=== PATIENT | female | born 1980 | race African-American/Black ===

== ENCOUNTER 2023-05-24 18:36 | Emergency (ER) | payer MEDICAID ==
[~2023-05-24] VITALS: Ht 167.6 cm; Wt 82.0 kg
[2023-05-24 18:46] VITALS: PULSE 105
[2023-05-24 18:54] VITALS: BP 125/76; RESP 18; TEMP 98; O2SAT 99
[2023-05-24] MEDS ORDERED: TRAM50TA3 MT (20:18)
[2023-05-24] MEDS ORDERED: NAPR-681 MT (20:18)
== END 2023-05-24 20:33 | disposition home or self-care (01) ==
LOC: ER 18:58
DX: S70.11XA Contusion of right thigh, initial encounter (principal); W06.XXXA Fall from bed, initial encounter; Y93.89 Activity, other specified; Y92.89 Other specified places as the place of occurrence of the external cause; Y99.8 Other external cause status
CPT/HCPCS: 99283

== ENCOUNTER 2023-08-06 12:58 | Emergency (ER) | payer MEDICARE, MEDICAID ==
[~2023-08-06] VITALS: Ht 170.2 cm; Wt 89.0 kg
[~2023-08-06 12:58] MED LIST: NAPR-681 MT; TRAM50TA3 MT
[2023-08-06 13:15] VITALS: O2SAT 99
[2023-08-06 14:01] LABS: CLARITY URINE CLEAR (CLEAR); COLOR URINE YELLOW (YELLOW); GLUCOSE URINE NEGATIVE (NEGATIVE); KETONES URINE TRACE (NEGATIVE); LEUKOCYTE ESTERASE URINE TRACE (NEGATIVE); NITRITE URINE NEGATIVE (NEGATIVE); OCCULT BLOOD URINE 3+ (NEGATIVE); PROTEIN URINE 1+ (NEGATIVE); SPECIFIC GRAVITY URINE 1.034 (1.005-1.030); UROBILINOGEN URINE 0.2 E.U./dL (0.2-1.0)
[2023-08-06 14:36] LABS: BACTERIA URINE 1+; MUCUS URINE TRACE /lpf (< = 2+); SQUAMOUS EPITHELIAL CELL URINE 3+ /lpf (RARE/1+)
[2023-08-06] MEDS ORDERED: CLAR10 MT (15:25)
[2023-08-06] MEDS ORDERED: FLUT9.9S BOTHNSTRLS (15:25)
[2023-08-06] MEDS ORDERED: IBUP-1523 MT (15:28)
[2023-08-06] MEDS ORDERED: CIPR-263 MT (15:28)
[2023-08-06] MEDS ORDERED: TOPUD MT (15:28)
[2023-08-06 15:43] VITALS: BP 129/67; PULSE 95; RESP 18; TEMP 98.5
== END 2023-08-06 15:44 | disposition home or self-care (01) ==
LOC: ER 12:58
DX: K05.10 Chronic gingivitis, plaque induced (principal); J30.9 Allergic rhinitis, unspecified; N39.0 Urinary tract infection, site not specified; Z88.0 Allergy status to penicillin; Z88.6 Allergy status to analgesic agent; Z79.899 Other long term (current) drug therapy
CPT/HCPCS: 81003; 81025; 99283

== ENCOUNTER 2024-05-01 19:53 | Emergency (ER) | payer MEDICARE, MEDICAID ==
[~2024-05-01] VITALS: Ht 170.2 cm; Wt 92.0 kg
[~2024-05-01 19:53] MED LIST changes: +CIPR-263 MT; +CLAR10 MT; +FLUT9.9S BOTHNSTRLS; +IBUP-1523 MT; +TOPUD MT
[2024-05-01 20:17] VITALS: O2SAT 99
[2024-05-01] MEDS ORDERED: CETI5TAB5 MT (22:19)
[2024-05-01] MEDS: ACETAMINOPHEN 500MG TABLET PO ONE (22:44)
[2024-05-01 23:18] VITALS: BP 152/76; PULSE 88; RESP 18; TEMP 36.89184; O2SAT 97
== END 2024-05-01 23:21 | disposition home or self-care (01) ==
LOC: ER 19:53
DX: R05.9 Cough, unspecified (principal); J45.909 Unspecified asthma, uncomplicated; R09.81 Nasal congestion; Z77.120 Contact with and (suspected) exposure to mold (toxic); Z88.0 Allergy status to penicillin; Z88.6 Allergy status to analgesic agent; Z98.890 Other specified postprocedural states; Z79.899 Other long term (current) drug therapy
CPT/HCPCS: 71045; 99283